=== PATIENT | male | born 1995 | race Hispanic/Latino ===

== ENCOUNTER → 2025-05-01 | Day surgery (SDC) | payer OTHER ==
[~2025-05-01] MED LIST: FENTANYL CITRATE/PF 100MCG/2 ML INJ ONE; LIDOCAINE HCL 2% LOCAL INJ 5 ML SDV VIAL INJ ONE; MIDAZOLAM HCL 2 MG/2 ML VIAL ONE; PROPOFOL IV EMULSION 50 ML IV ONE
[2025-05-01] MEDS: LACTATED RINGER'S 1,000 ML ONE (07:24)
[2025-05-01 10:01] VITALS: TEMP 97.7
[2025-05-01 10:45] VITALS: BP 120/86; PULSE 61; RESP 18; O2SAT 99
== END | disposition home or self-care (01) ==
LOC: OR 07:02
PROVIDERS: ATTEND Internal Medicine Gastroenterology
DX: K52.9 Noninfective gastroenteritis and colitis, unspecified (principal); D12.4 Benign neoplasm of descending colon; K29.70 Gastritis, unspecified, without bleeding; K63.3 Ulcer of intestine; K21.9 Gastro-esophageal reflux disease without esophagitis; K62.89 Other specified diseases of anus and rectum; K44.9 Diaphragmatic hernia without obstruction or gangrene; K76.0 Fatty (change of) liver, not elsewhere classified; N40.0 Benign prostatic hyperplasia without lower urinary tract symptoms
CPT/HCPCS: 43239; 45380; 45384; J2003; J2250; J2704; J3010; J7121